=== PATIENT | male | born 1970 | race Caucasian/White ===

== ENCOUNTER 2022-06-19 05:39 | Day surgery (SDC) | payer OTHER, SELFPAY ==
[2022-06-19] VITALS (17 sets, daily range): BP systolic 104–185; BP diastolic 69–98; PULSE 50–62; RESP 11–17; TEMP 36.2–36.8; O2SAT 94–100
[2022-06-19] MEDS: sodium chloride 0.9% 1,000 ML 30 ML IV (06:33)
--- NOTE | 2022-06-19 06:57 | P.HP_ITS ---
Providers/Chief Complaint Chief Complaint: K42.9 History of Present Illness Niko Guadarrama is a 52 year old male here for umbilical hernia repair Medications/Allergies Home Medications Medication Instructions Recorded Confirmed Last Taken Type olmesartan 20 mg tablet (Benicar) 20 mg PO DAILY 05/01/22 06/16/22 06/16/22 History Allergies Allergy/AdvReac Type Severity Reaction Status Date / Time No Known Allergies Allergy Verified 06/19/22 05:59 PFSH Acute PFSH: Social History Smoking and tobacco status: never smoked Vitals/I&O/Wt Last Vital Signs Temp 97.2 F L 06/19/22 05:56 Pulse 59 L 06/19/22 05:56 Resp 16 06/19/22 05:56 BP 185/98 06/19/22 05:56 Pulse Ox 94 06/19/22 05:56 O2 Del Method 06/19/22 06:10 A&P Assessment and plan (1) Umbilical hernia: Plan Laparoscopic repair of umbilical hernia with mesh The risks and benefits were explained and documented. Attestations Medical Necessity Statement*: Home Coding Level of Care Code Acute Special Education Teaching Assistant for Chg Fwd Diagnoses Umbilical hernia K42.9
[2022-06-19] MEDS: ceFAZolin 3,000 MG in sodium chloride 0.9% (100 ml) 100 ML 200 MG IV (07:10)
--- NOTE | 2022-06-19 08:06 | ANES.PREANE2 ---
Pre-Anesthetic Assessment Height/Weight: Height 1.93 m Weight 176.901 kg Temp Pulse Resp BP Pulse Ox O2 Del Method 97.2 F L 59 L 16 185/98 94 06/19/22 05:56 06/19/22 05:56 06/19/22 05:56 06/19/22 05:56 06/19/22 05:56 06/19/22 06:10 Preop Diagnosis: Umbilical hernia Operation Date: 06/19/22 07:00 Proposed Procedures p [id number] laparascopic repair umbilical hernia w/mesh K42.9(Not Applicable) - Amish Gifford DO Familial anesthetic complications: none Was Beta Eugene taken within 24 hours: N/A Was Clonidine taken within 24 hours: N/A Last intake: Intake Last Liquid Date 06/18/22 Last Liquid Time 17:00 Last Solid Date 06/18/22 Last Solid Time 17:00 Social No alcohol and No tobacco Exam alert, oriented x 3, clear to auscultation bilaterally and regular rate & rhythm Airway Submandibular: within normal limits Cervical ROM: within normal limits Mallampati: Class II Dentition: chipped Comments: Comments: Missing several CV/HEM Hypertension Metabolic Morbid Obesity Anesthetic Plan ASA status: 3 Anesthesia: General Medications/Allergies Home Medications Medication Instructions Recorded Confirmed Last Taken Type olmesartan 20 mg tablet (Benicar) 20 mg PO DAILY 05/01/22 06/16/22 06/16/22 History Allergies Allergy/AdvReac Type Severity Reaction Status Date / Time No Known Allergies Allergy Verified 06/19/22 05:59 Current Medications Generic Name Dose Route Start Last Admin Trade Name Freq PRN Reason Stop Dose Admin Sodium Chloride 1,000 mls @ 30 mls/hr 06/19/22 06:00 06/19/22 06:33 Sodium Chloride 0.9% IV 06/20/22 05:59 30 mls/hr .Q24H OPAL Administration PFSH Anesthesia Social History Smoking and tobacco status: never smoked Data Anesthesia Cardiac Studies: No Data to Display
--- NOTE | 2022-06-19 08:34 | PM.OP ---
Operative Report Date of procedure: June 19, 2022 Pre-op diagnosis: Preop Diagnosis Umbilical hernia Post-op diagnosis: same Procedure done: Laparoscopic umbilical hernia repair with mesh Implants: 6 inch ventral light mesh Specimens removed/disposition: Hernia sac Surgeon: Dr. Amish Gifford DO Anesthesia: General Estimated blood loss (mL): 5 Complications: None apparent Brief History: This is a very pleasant 52-year-old gentleman who came to my office with an umbilical hernia. Repair with mesh was indicated. The risks and benefits were explained and documented. Procedure: Patient was wheeled into the operative room and placed on the OR table in a supine position. Abdomen was inspected prepped and draped in usual sterile fashion. Time-out was performed and all present were in agreement. A 15 blade scalp was used to make a 5 millimeter incision left upper quadrant. A Veress needle was placed into the incision and intra-abdominal insufflation was brought to 15 millimeters of mercury. A 12 millimeter trocar was placed into the left lower quadrant. The energy but device was then used to cut out the hernia sac. A 6 inch ventral light mesh was placed into the abdomen and brought up through the umbilicus using an the Mitchell-Angeli. The mesh was then tacked in place in a double crown fashion. The skeleton of the mesh was removed via the left lower quadrant. The hernia sac was then removed from the abdomen via the left lower quadrant. The left lower quadrant port site was closed with an 0 Vicryl suture in a Mitchell-Angeli in a [id number] fashion. Incisions were closed with 4 O Vicryl in a subcuticular interrupted fashion. Skin glue was applied. A dressing that included cotton balls and a Tegaderm was placed over the umbilicus. Patient tolerated the procedure well.
[2022-06-19] MEDS: fentaNYL 50 mcg/mL INJ 2mL 100 MCG (08:49)
[2022-06-19] MEDS: HYDROcodone-acetaminophen 7.5-325 mg Tablet 1 TAB PO (09:38)
--- NOTE | 2022-06-19 15:26 | ANE.PACU2 ---
Inpatient post-anesthesia follow up: Airway intact: Yes Vital signs: Temperature 98.3 F Pulse Rate 55 Respiratory Rate 17 Blood Pressure 129/70 Pulse Oximetry 94 Oxygen Delivery Me thod Room Air Oxygen Flow Rate 10 Fraction of Inspir ed Oxygen Hydration adequate: Yes Nausea and vomiting: No Pain level: 4 Mental status: Baseline
== END 2022-06-19 10:34 | disposition home or self-care (01) ==
PROVIDERS: Visit Provider Surgery
PROC: 0WQF4ZZ Repair Abdominal Wall, Percutaneous Endoscopic Approach (ICD-10-PCS; CPT 49650; principal; 2022-06-19 07:00)
DX: K42.9 Umbilical hernia without obstruction or gangrene (principal); I10 Essential (primary) hypertension; E66.01 Morbid (severe) obesity due to excess calories; Z68.43 Body mass index [BMI] 50.0-59.9, adult
CPT/HCPCS: 49650; 88302; J0330; J0690; J1100; J2250; J2405; J2704; J3010; J3490; J7030

== ENCOUNTER → 2022-07-24 09:19 | Outpatient (BNVA) | payer OTHER, SELFPAY | PROVIDERS: Visit Provider Emergency Medicine | DX: I10 Essential (primary) hypertension (principal) | CPT/HCPCS: 71046; 80053; 80061; 83880; 84443; 85025; G0103 ==

== ENCOUNTER 2022-08-18 06:42 | Day surgery (SDC) | payer OTHER, SELFPAY ==
[2022-08-15 14:33] VITALS: BMI 47.5
[2022-08-18 07:11] VITALS: BP 149/103; PULSE 62; RESP 18; TEMP 36.1; O2SAT 97
[2022-08-18] MEDS: sodium chloride 0.9% 1,000 ML 30 ML IV (07:13)
--- NOTE | 2022-08-18 08:13 | ANES.PREANE2 ---
Pre-Anesthetic Assessment Height/Weight: Height 1.93 m Weight 176.901 kg Temp Pulse Resp BP Pulse Ox O2 Del Method 97 F L 62 18 149/103 97 08/18/22 07:11 08/18/22 07:11 08/18/22 07:11 08/18/22 07:11 08/18/22 07:11 08/18/22 07:11 Preop Diagnosis: Umbilical hernia Operation Date: 08/18/22 08:30 Proposed Procedures p Colonoscopy [id number] ,Z12.11(Not Applicable) - Amish Gifford DO Familial anesthetic complications: none Was Beta Eugene taken within 24 hours: N/A Was Clonidine taken within 24 hours: N/A Last intake: Intake Last Liquid Date 08/17/22 Last Liquid Time 22:00 Last Solid Date 08/16/22 Last Solid Time 17:00 Last Intake: 22:00 Social No alcohol and No tobacco Exam alert, oriented x 3, clear to auscultation bilaterally and regular rate & rhythm Airway Submandibular: within normal limits Cervical ROM: within normal limits Mallampati: Class II Dentition: chipped (front upper) Pulmonary None reported CV/HEM Hypertension None reported Hepatic None reported GI Gastroesophageal Reflux Disease (food related) Metabolic Morbid Obesity Musc/skel None reported Neuropsych None reported Anesthetic Plan ASA status: 3 Anesthesia: MAC Risk of > 500 ml blood loss (7ml/kg in children): No Medications/Allergies Home Medications Medication Instructions Recorded Confirmed Last Taken Type olmesartan 20 mg tablet (Benicar) 20 mg PO DAILY blood pressure #30 07/21/22 08/15/22 08/16/22 Rx tabs Cinnamon 500 mg PO DAILY 08/15/22 08/15/22 08/16/22 History garlic 1 tab PO DAILY 08/15/22 08/18/22 08/16/22 History tumeric 100 mg-gabbi 150 mg-olive 1 cap PO DAILY 08/15/22 08/18/22 08/16/22 History 50 mg-oreg 150 mg-caprylate capsule Allergies Allergy/AdvReac Type Severity Reaction Status Date / Time No Known Allergies Allergy Verified 08/15/22 14:33 Current Medications Generic Name Dose Route Start Last Admin Trade Name Freq PRN Reason Stop Dose Admin Sodium Chloride 1,000 mls @ 30 mls/hr 08/18/22 07:00 08/18/22 07:13 Sodium Chloride 0.9% IV 08/19/22 06:59 30 mls/hr .Q24H OPAL Administration PFSH Anesthesia Medical History (Updated 07/21/22 @ 15:12 by THOMAS Allison) HTN (hypertension) with goal to be determined Morbid obesity Surgical History History of umbilical hernia repair Lap Repair Social History Smoking and tobacco status: never smoked Data Anesthesia Cardiac Studies: No Data to Display
--- NOTE | 2022-08-18 08:35 | PM.HP ---
Providers/Chief Complaint Primary Care Provider: Yohana Baeza MD Chief Complaint: encounter for screening History of Present Illness Niko Guadarrama is a 52 year old male here for his first screening colonoscopy Medications/Allergies Home Medications Medication Instructions Recorded Confirmed Last Taken Type olmesartan 20 mg tablet (Benicar) 20 mg PO DAILY blood pressure #30 07/21/22 08/15/22 08/16/22 Rx tabs Cinnamon 500 mg PO DAILY 08/15/22 08/15/22 08/16/22 History garlic 1 tab PO DAILY 08/15/22 08/18/22 08/16/22 History tumeric 100 mg-gabbi 150 mg-olive 1 cap PO DAILY 08/15/22 08/18/22 08/16/22 History 50 mg-oreg 150 mg-caprylate capsule Allergies Allergy/AdvReac Type Severity Reaction Status Date / Time No Known Allergies Allergy Verified 08/15/22 14:33 PFSH Acute PFSH: Medical History (Updated 07/21/22 @ 15:12 by THOMAS Allison) HTN (hypertension) with goal to be determined Morbid obesity Surgical History History of umbilical hernia repair Lap Repair Social History Smoking and tobacco status: never smoked Vitals/I&O/Wt Last Vital Signs Temp 97 F L 08/18/22 07:11 Pulse 62 08/18/22 07:11 Resp 18 08/18/22 07:11 BP 149/103 08/18/22 07:11 Pulse Ox 97 08/18/22 07:11 O2 Del Method 08/18/22 07:11 A&P Assessment and plan (1) Colon cancer screening: Plan Colonoscopy Attestations Medical Necessity Statement*: Home Coding Level of Care Code Acute Code for Chg Fwd Diagnoses Colon cancer screening Z12.11
[2022-08-18 09:05] VITALS: BP 132/69; PULSE 66; RESP 16; TEMP 36.1; O2SAT 98
[2022-08-18 09:15] VITALS: BP 126/83; PULSE 64; RESP 16; O2SAT 98
[2022-08-18 09:26] VITALS: BP 145/98; PULSE 64; RESP 16; O2SAT 97
--- NOTE | 2022-08-18 10:13 | PC.NURSE ---
Pt first c/o 04/08 abdominal pain and discharge was delayed until pt could pass enough gas until he had as he stated no pain.
--- NOTE | 2022-08-18 12:53 | ANE.PACU2 ---
Inpatient post-anesthesia follow up: Airway intact: Yes Vital signs: Temperature 97 F Pulse Rate 64 Respiratory Rate 16 Blood Pressure 145/98 Pulse Oximetry 97 Oxygen Delivery Me thod Room Air Oxygen Flow Rate 3 Fraction of Inspir ed Oxygen Hydration adequate: Yes Nausea and vomiting: No Pain level: 2 Mental status: Baseline
== END 2022-08-18 10:15 | disposition home or self-care (01) ==
PROVIDERS: PCP Family Medicine; Visit Provider Surgery
PROC: 0DJD8ZZ Inspection of Lower Intestinal Tract, Via Natural or Artificial Opening Endoscopic (ICD-10-PCS; CPT 45378; principal; 2022-08-18 08:30)
DX: Z12.11 Encounter for screening for malignant neoplasm of colon (principal); D12.8 Benign neoplasm of rectum; I10 Essential (primary) hypertension; E66.01 Morbid (severe) obesity due to excess calories; Z68.42 Body mass index [BMI] 45.0-49.9, adult; K21.9 Gastro-esophageal reflux disease without esophagitis
CPT/HCPCS: 45385; 88305; J2704; J7030

== ENCOUNTER → 2022-09-27 13:23 | Outpatient (BNVA) | payer OTHER, SELFPAY | PROVIDERS: PCP Family Medicine; Visit Provider Family Medicine | DX: E11.9 Type 2 diabetes mellitus without complications (principal); I10 Essential (primary) hypertension; I16.0 Hypertensive urgency; Z68.42 Body mass index [BMI] 45.0-49.9, adult; E78.2 Mixed hyperlipidemia | CPT/HCPCS: 80048; 83036 ==

== ENCOUNTER → 2022-12-27 13:21 | Outpatient (BNVA) | payer OTHER, SELFPAY | PROVIDERS: PCP Family Medicine; Visit Provider Family Medicine | DX: E11.9 Type 2 diabetes mellitus without complications (principal) | CPT/HCPCS: 83036 ==

== ENCOUNTER → 2023-04-25 15:46 | Outpatient (BNVA) | payer OTHER, SELFPAY | PROVIDERS: PCP Family Medicine; Visit Provider Family Medicine | DX: J30.9 Allergic rhinitis, unspecified (principal); I10 Essential (primary) hypertension; E11.9 Type 2 diabetes mellitus without complications; E78.2 Mixed hyperlipidemia; G43.909 Migraine, unspecified, not intractable, without status migrainosus; G44.52 New daily persistent headache (NDPH) | CPT/HCPCS: 80053; 80061; 83036; 85025; 85651; 86140 ==

== ENCOUNTER 2023-05-29 15:21 | Outpatient (CLI) | payer OTHER, SELFPAY ==
--- NOTE | 2023-05-29 16:00 | MR_ITS ---
WS: [id number] MRI BRAIN WITHOUT CONTRAST HISTORY: G44.52 - New daily persistent headache (NDPH) COMPARISON: CT head 11/22/2017 TECHNIQUE: Diffusion imaging, multiplanar T1, T2 and FLAIR imaging obtained. No evidence for acute infarct or hemorrhage. Hurt-white matter differentiation is normal. Very mild atrophy. Few scattered T2 and FLAIR signal hyperintensities throughout the white matter fro m small vessel ischemic disease. No prior infarct. Ventricles and extra-axial spaces are normal. No inferior displacement of cerebellar tonsils. The sella turcica and pituitary gland are unremarkabl e. Dural venous sinuses and [place] demonstrate no abnormality on this unenhanced studies. Paranasal sinuses: Mild mucoperiosteal thickening in the ethmoid and maxillary sinuses. Mucous retent ion cyst in the RIGHT maxillary sinus and the anterior LEFT maxillary sinus. No air-fluid levels. Mastoid air cells: Normal. Calvarium and scalp: Intact. IMPRESSION: 1. No acute infarcts or hemorrhage. 2. Mild atrophy and very mild small vessel ischemic changes. No prior infarct.
== END 2023-05-29 15:22 | disposition home or self-care (01) ==
LOC: RAD 15:22
PROVIDERS: PCP Family Medicine; Visit Provider Family Medicine
DX: G44.52 New daily persistent headache (NDPH) (principal)
CPT/HCPCS: 70551

== ENCOUNTER 2023-06-05 16:00 | Outpatient (CLI) | payer OTHER, SELFPAY | END 2023-06-05 16:01 | disposition home or self-care (01) | LOC: SLEEP 06-06 14:48 | PROVIDERS: PCP Family Medicine; Visit Provider Family Medicine | DX: R06.83 Snoring (principal); I10 Essential (primary) hypertension; G44.52 New daily persistent headache (NDPH) | CPT/HCPCS: G0399 ==

== ENCOUNTER → 2023-07-04 15:22 | Outpatient (BNVA) | payer OTHER, SELFPAY | PROVIDERS: PCP Family Medicine; Visit Provider Family Medicine | DX: E11.9 Type 2 diabetes mellitus without complications (principal); I10 Essential (primary) hypertension | CPT/HCPCS: 83036; 84244 ==

== ENCOUNTER → 2023-07-05 15:22 | Outpatient (BNVA) | payer OTHER, SELFPAY | PROVIDERS: PCP Family Medicine; Visit Provider Family Medicine | DX: E11.9 Type 2 diabetes mellitus without complications (principal); I10 Essential (primary) hypertension; G43.809 Other migraine, not intractable, without status migrainosus; G47.33 Obstructive sleep apnea (adult) (pediatric) | CPT/HCPCS: 82088 ==

== ENCOUNTER → 2024-01-10 08:41 | Outpatient (BNVA) | payer OTHER, SELFPAY | PROVIDERS: PCP Family Medicine; Visit Provider Family Medicine | DX: E11.9 Type 2 diabetes mellitus without complications (principal) | CPT/HCPCS: 80048; 83036 ==

== ENCOUNTER → 2024-07-10 08:29 | Outpatient (BNVA) | payer OTHER, SELFPAY | PROVIDERS: PCP Family Medicine; Visit Provider Family Medicine | DX: E11.9 Type 2 diabetes mellitus without complications (principal) | CPT/HCPCS: 80053; 80061; 83036 ==

== ENCOUNTER → 2025-01-07 08:36 | Outpatient (BNVA) | payer OTHER, SELFPAY | PROVIDERS: PCP Family Medicine; Visit Provider Family Medicine | DX: I10 Essential (primary) hypertension (principal); E11.9 Type 2 diabetes mellitus without complications | CPT/HCPCS: 80048; 83036 ==

== ENCOUNTER → 2025-02-25 14:19 | Outpatient (BNVA) | payer OTHER, SELFPAY | PROVIDERS: PCP Family Medicine; Visit Provider Student in an Organized Health Care Education/Training Program | DX: G56.03 Carpal tunnel syndrome, bilateral upper limbs (principal); M18.0 Bilateral primary osteoarthritis of first carpometacarpal joints | CPT/HCPCS: 73130 ==

== ENCOUNTER 2025-02-25 15:12 | Outpatient (CLI) | payer OTHER, SELFPAY | END 2025-02-25 15:13 | disposition home or self-care (01) | LOC: SPT 15:13 | PROVIDERS: PCP Family Medicine; Visit Provider Student in an Organized Health Care Education/Training Program | DX: Z46.89 Encounter for fitting and adjustment of other specified devices (principal); M18.0 Bilateral primary osteoarthritis of first carpometacarpal joints | CPT/HCPCS: 97760; L3924 ==

== ENCOUNTER → 2025-03-18 14:28 | Outpatient (BNVA) | payer OTHER, SELFPAY | PROVIDERS: PCP Family Medicine; Visit Provider Family Medicine | DX: E11.9 Type 2 diabetes mellitus without complications (principal) | CPT/HCPCS: 83036 ==

== ENCOUNTER 2025-04-10 08:34 | Day surgery (SDC) | payer OTHER, SELFPAY ==
[2025-04-10] VITALS (7 sets, daily range): BP systolic 104–153; BP diastolic 47–79; PULSE 57–68; RESP 18; TEMP 36.2–36.3; O2SAT 93–97; BMI 47.5
[2025-04-10] MEDS: acetaminophen 1,000 MG/100 ML PIGGYBACK 400 MG IV (09:10)
--- NOTE | 2025-04-10 09:16 | W.PM.OPSFHP ---
Same Day Surgery H&P Indication for Procedure/HPI DATE OF PROCEDURE: April 10, 2025 CHIEF COMPLAINT/INDICATIONFOR SURGICAL PROCEDURE: Right carpal tunnel syndrome PREOP DIAGNOSIS: Right carpal tunnel syndrome PLANNED PROCEDURE: Operation Date: 04/10/25 10:30 Proposed Procedures p Carpal Tunnel Release(Right) - Hal Jain DO Medications/Allergies* Home Medications ?Medication ?Instructions ?Recorded ?Confirmed ?Type melatonin 10 mg tablet 10 mg PO .at bedtime 03/21/23 04/09/25 History Allergies/Adverse Reactions Allergy/AdvReac Type Severity Reaction Status Date / Time No Known Allergies Allergy Verified 04/10/25 08:55 Current Medications: Generic Name Dose Route Start Last Admin Trade Name Freq PRN Reason Stop Dose Admin Sodium Chloride 1,000 mls @ 30 mls/hr 04/10/25 08:45 04/10/25 09:10 Sodium Chloride 0.9% IV 04/11/25 08:44 30 mls/hr .Q24H OPAL Administration Pertinent History/Comorbid Conditions* Medical History (Updated 02/19/25 @ 18:14 by Sarah Us MD) Morbid obesity HTN (hypertension) with goal to be determined Surgical History (Updated 06/30/22 @ 09:46 by Amish Gifford DO) History of umbilical hernia repair Lap Repair Family History (Updated 08/30/22 @ 14:36 by Elizabeth Macias LPN) Diabetes Grandmother maternal Thyroid disease Denies family history of Clotting disorder Chronic kidney disease (CKD) Bleeding disorder Cancer Hypertension Stroke Social History Smoking and tobacco/nicotine status: former use of tobacco/nicotine Pertinent Exam Findings alert, oriented x 3, operative site marked and procedure specific exam findings Please refer to detailed orthopedic examination on 02/25/2025 listed below: Carpal Tunnel Exam: Normal C-spine ROM, No pain. Negative Spurling's Negative Tinel's @ shoulder, Normal ROM Negative Tinel's @ elbow, Normal ROM Positive Tinel's @ wrist, right Positive median nerve compression test, right Mildly positive median nerve compression test, left Positive CMC grind, bilaterally TTP over CMC joint, bilaterally Good intrinsic strength, No atrophy, bilaterally Good thenar strength, no atrophy, Left Thenar weakness, subtle atrophy noted, Right Recommendations Risks and benefits of procedure reviewed and Patient/family agree to proceed Surgery/Procedure today Other Plans: Plan to proceed to the OR today for right carpal tunnel release understands the ins and outs of procedure the risk benefits complication alternatives surgical nonsurgical treatment options. Understanding risk of surgery patient elects proceed with surgical intervention. All questions answered at this time. Coding Level of Care Code Acute Code for Chg Fwd
--- NOTE | 2025-04-10 09:22 | ANES.PREANE2 ---
Pre-Anesthetic Assessment Height/Weight: Height 1.93 m Weight 176.901 kg Temp Pulse Resp BP Pulse Ox O2 Del Method 97.2 F L 63 18 153/79 95 Room Air 04/10/25 09:00 04/10/25 09:00 04/10/25 09:00 04/10/25 09:00 04/10/25 09:00 04/10/25 09:00 Preop Diagnosis: Right carpal tunnel syndrome Operation Date: 04/10/25 10:30 Proposed Procedures p Carpal Tunnel Release(Right) - Hal Jain DO Familial anesthetic complications: none Was Beta Eugene taken within 24 hours: N/A Was Clonidine taken within 24 hours: N/A Last intake: Intake Last Liquid Date 04/09/25 Last Liquid Time 18:30 Last Solid Date 04/09/25 Last Solid Time 18:30 Social No alcohol and No tobacco Exam alert, oriented x 3, clear to auscultation bilaterally and regular rate & rhythm Airway Mallampati: Class IV Dentition: chipped Pulmonary Asthma and Sleep Apnea CV/HEM Hypertension Metabolic Morbid Obesity Anesthetic Plan ASA status: 3 Anesthesia: MAC Risk of > 500 ml blood loss (7ml/kg in children): No Medications/Allergies Home Medications ?Medication ?Instructions ?Recorded ?Confirmed ?Last Taken ?Type blood-glucose meter (Blood Glucose #1 ea 08/30/22 03/18/25 Unknown Rx Monitoring kit) lancets #100 ea 08/30/22 03/18/25 Unknown Rx ketoconazole 2 % shampoo 1 applic topical Q7D #120 mL 12/27/22 04/09/25 04/09/25 Rx melatonin 10 mg tablet 10 mg PO .at bedtime 03/21/23 04/09/25 04/09/25 History albuterol sulfate 90 mcg/actuation 2 puff inhalation QID PRN 01/07/25 04/09/25 Unknown Rx aerosol inhaler shortness of breath or wheezing 30 days #18 grams amlodipine 10 mg tablet 10 mg PO DAILY 90 days #90 tabs 01/07/25 04/09/25 04/09/25 Rx clonidine HCl 0.2 mg tablet 0.2 mg PO BID 90 days #180 tabs 01/07/25 04/09/25 04/09/25 Rx fluticasone propionate 50 1 spray intranasal Q12H #16 grams 01/07/25 04/09/25 04/09/25 Rx mcg/actuation nasal spray,suspension (Flonase Allergy Relief) hydrochlorothiazide 25 mg tablet 25 mg PO QAM 90 days #90 tabs 01/07/25 04/09/25 04/09/25 Rx olmesartan 40 mg tablet 40 mg PO DAILY blood pressure 90 01/07/25 04/09/25 04/09/25 Rx days #90 tabs blood sugar diagnostic (Contour #50 strips 02/16/25 03/18/25 Unknown Rx Next Test Strips) Bilateral Thumb CMC Joint Brace #1 ea 02/25/25 03/18/25 Unknown Rx diclofenac sodium 1 % topical gel 4 g topical QID #100 grams 02/25/25 04/09/25 04/09/25 Rx (Voltaren Arthritis Pain) metformin 500 mg tablet,extended 1,000 mg (2 x 500 mg) PO BID 90 03/23/25 04/09/25 04/09/25 Rx release 24 hr days #360 tabs Allergies Allergy/AdvReac Type Severity Reaction Status Date / Time No Known Allergies Allergy Verified 04/10/25 08:55 Current Medications Generic Name Dose Route Start Last Admin Trade Name Freq PRN Reason Stop Dose Admin Sodium Chloride 1,000 mls @ 30 mls/hr 04/10/25 08:45 04/10/25 09:10 Sodium Chloride 0.9% IV 04/11/25 08:44 30 mls/hr .Q24H OPAL Administration PFSH Anesthesia Medical History Morbid obesity HTN (hypertension) with goal to be determined Surgical History History of umbilical hernia repair Lap Repair Family History Grandmother Diabetes maternal Other Thyroid disease Denies family history of Clotting disorder Chronic kidney disease (CKD) Bleeding disorder Cancer Hypertension Stroke Social History Smoking and tobacco/nicotine status: former use of tobacco/nicotine
[2025-04-10] MEDS: ceFAZolin 3,000 MG in sodium chloride 0.9% (plus) 100 ML 200 MG IV (09:39)
[2025-04-10] MEDS: ROPivacaine 0.5% SDV 30 mL 25 MG INJECTION (10:10)
[2025-04-10] MEDS: lidocaine-epi 1% 20 mL INJ 4 ML INJECTION (10:10)
--- NOTE | 2025-04-10 10:17 | W.PM.BPON ---
Date of Procedure: 04/10/2025 Surgeon: Hal Jain DO Research Specialist(s): None Procedure(s) performed: Right carpal tunnel release Findings of the procedure(s): Patient underwent procedure as planned without issues or complications Estimated blood loss: 2 mL Specimen(s) removed: None Post-operative diagnosis: Right carpal tunnel syndrome
--- NOTE | 2025-04-10 10:18 | PM.OP ---
Operative Report Date of procedure: April 10, 2025 Surgeon: Hal Jain DO Procedure: Preop Diagnosis: Right Carpal Tunnel Syndrome Post-op diagnosis: Same Procedure done: 1. Right carpal tunnel release Surgeon: Hal Jain DO Anesthesia: MAC (Local) Estimated blood loss: 2 mL Tourniquet time 7minutes IV fluids: See anesthesia record Complications: None Findings: See operative report narrative Condition: stable Disposition: same day Brief History: Patient is a pleasant 55 year-old male with right carpal tunnel syndrome. Patient has been worked up in the outpatient setting findings and physical examination consistent with this. Patient nerve conduction studies consistent with carpal tunnel syndrome. We detailed out patient's risk benefits complication alternatives with surgical and nonsurgical treatment options. Through shared decision making, patient agrees to proceed with surgical intervention of the right carpal tunnel release . Patient understands and agrees with current plan. All questions answered. Patient elects to proceed with surgical intervention with carpal tunnel release. Procedure: Patient seen and evaluated in the preoperative holding area. Consent was reviewed and signed with patient. Correct extremity was marked. Patient was seen evaluated by the anesthesia department once cleared for surgery was brought back to the operative suite. Patient was kept on [facility] in supine position all bony prominences were well-padded patient properly secured to the bed. Right upper extremity was then placed onto an armboard. A nonsterile tourniquet was applied to the Right upper arm. Patient underwent anesthesia per the anesthesia department. Patient's Right upper extremity was then prepped and draped in standard orthopedic fashion. Final timeout performed. Patient received appropriate preoperative antibiotics. Under sterile aseptic technique patient received local anesthesia over the preplanned carpal tunnel incision site. Esmarch was used to exsanguinate the Right upper extremity and tourniquet was insufflated to 250 mmHg. A standard mini open Right carpal tunnel incision was made. Starting distally at Mendez's cardinal line in line with the fourth ray extending proximally distal to the wrist crease centered over the carpal tunnel. Sharp scalpel incision was made through skin and subcutaneous tissue. Self-retaining retractor was placed and the palmar fascia was identified. This was then split longitudinally and direct visualization of the transverse carpal ligament was then made. I then utilizing scalpel feathered through the transverse carpal ligament until I entered the floor of the transverse carpal tunnel ligament into the carpal tunnel. Next I switched to dissection scissors and completed my release of the transverse carpal ligament distally with care to protect the recurrent motor branch. I completely released into the palmar fat and until no entrapment was noted distally. Care was made to protect the superficial palmar arch during my distal dissection. Next I utilized a nasal speculum placed on top of the transverse carpal ligament and utilize this to retract the subcutaneous fat and tissue and under direct loupe magnification was able to identify the transverse carpal ligament. Next I then protected the contents of the carpal tunnel and subsequently utilizing dissection scissors under loupe magnification completely released the transverse carpal ligament proximally into the antebrachial fascia. Care was made to protect the palmar cutaneous branch by keeping my scissors curved ulnarly. Once completely released, I then placed my [place] and had appropriate decompression of the carpal tunnel proximally as well as distally. I then inspected the contents of the carpal tunnel which showed an hourglass shape of the median nerve showing its compression. No masses were noted. Tendons appeared healthy. Wound was then thoroughly irrigated. Tourniquet deflated. Hemostasis satisfactory with bipolar electrocautery. I then closed the incision with interrupted nylon stitches. Xeroform 4 x 4's and a bulky soft dressing was applied. Patient was then awakened from anesthesia and taken to PACU in stable condition. Patient tolerated procedure without complications. Disposition: Patient taken to PACU in stable condition recovering well. Dressing clean dry and intact. Patient will receive appropriate discharge instructions as well as pain medication postoperatively. Patient to follow-up with me in the office in 2 weeks. They understand they may be weightbearing as tolerated to the right hand. Patient should keep incision clean dry and intact. Patient understands if any questions or concerns may contact the office.
--- NOTE | 2025-04-10 10:46 | ANE.PACU2 ---
Inpatient post-anesthesia follow up: Airway intact: Yes Vital signs: Temperature 97.3 F Pulse Rate 62 Respiratory Rate 18 Blood Pressure 119/71 Pulse Oximetry 95 Oxygen Delivery Me thod Room Air Oxygen Flow Rate 8 Fraction of Inspir ed Oxygen Hydration adequate: Yes Nausea and vomiting: No Pain level: 1 Mental status: Baseline
== END 2025-04-10 11:20 | disposition home or self-care (01) ==
PROVIDERS: PCP Family Medicine; Visit Provider Student in an Organized Health Care Education/Training Program
PROC: (CPT 64721; principal; 2025-04-10 10:20)
DX: G56.01 Carpal tunnel syndrome, right upper limb (principal); G47.30 Sleep apnea, unspecified; J45.909 Unspecified asthma, uncomplicated; I10 Essential (primary) hypertension; E66.01 Morbid (severe) obesity due to excess calories; Z68.42 Body mass index [BMI] 45.0-49.9, adult; Z79.84 Long term (current) use of oral hypoglycemic drugs; Z87.891 Personal history of nicotine dependence
CPT/HCPCS: 64721; 36416; 82962; J0131; J0690; J1885; J2704; J2795; J3010; J7030; J9999

== ENCOUNTER → 2025-06-24 08:58 | Outpatient (BNVA) | payer OTHER, SELFPAY | PROVIDERS: PCP Family Medicine; Visit Provider Family Medicine | DX: E11.9 Type 2 diabetes mellitus without complications (principal); E78.2 Mixed hyperlipidemia | CPT/HCPCS: 80048; 80061; 83036 ==